=== PATIENT | female | born 1975 | race Caucasian/White ===

== ENCOUNTER 2017-06-27 05:10 | Emergency (ER) | payer OTHER ==
[~2017-06-27] VITALS: Ht 167.6 cm; Wt 190.5 kg
[~2017-06-27 05:10] MED LIST: AMBIEN CR12.5 M1 PO; AUGMENTIN 875-1 EACH PO; BACLOFEN10 M1 PO; DOXEPIN HCL10 MG PO; TRAMADOL HCL50 M1 PO
[2017-06-27 05:42] VITALS: BP 162/94
--- NOTE | 2017-06-27 05:50 | ED INFLUENZA/URI COMPLAINT ---
History of Present Illness General Chief Complaint: Upper Respiratory Sx/Fever Stated Complaint: PER PT " BAD COUGH,SAHU,BODY ACHES" Source: patient, old records Exam Limitations: no limitations Vital Signs & Intake/Output Vital Signs & Intake/Output Vital Signs Date Time Temp Pulse Resp B/P B/P Pulse O2 O2 Flow FiO2 Mean Ox Delivery Rate 06/27 0613 Room Air 06/27 0542 98.8 88 22 162/94 97 Room Air Room Air Allergies Coded Allergies: gabapentin (Severe, ANAPHYLAXIS 03/01/17) Reconcile Medications Amoxicillin/Potassium Clav (Augmentin 875-125 Tablet) 875 MG-125 MG TABLET 1 TAB PO BID colitis Baclofen 10 MG TABLET 1 TAB PO TID MUSCLE SPASMS Doxepin HCl 10 MG CAPSULE 1 CAP PO QHS PRN insomnia Tramadol HCl 50 MG TABLET 1-2 TAB PO Q6P PRN PAIN Zolpidem Tartrate (Ambien Cr) 12.5 MG TAB.MPHASE 1 TAB PO QHS PRN insomnia Triage Note: 41YO FEMALE TO TRIAGE W/CO RUNNY NOSE 2 D AGO, THEN COUGH, SORE THROAT AND SINUS PAIN BEGAN YESTERDAY Triage Nurses Notes Reviewed? yes : No Patient currently breastfeeds: No HPI: Patient presents the emergency department with a 4 day history of sinus congestion, runny nose, postnasal drip and a productive cough. Positive chills but no fevers. Positive sinus pressure that is worse when she leans forward. There is no radiation of the pressure. At its worst the pressure as a 5 out of 10. Patient states that she feels a little bit short of breath from the coughing. Patient denies any chest pain or chest tightness. There is no headache or blurry vision. Patient is also having a sore throat for the past 2 days. The sore throat was worse when she coughs. There is no radiation. No difficulty swallowing. Patient states that she had similar symptoms approximately a month and half ago. At that time she went to walk [place] and was put on Augmentin as well as a Z-Bruce as well as Tessalon Perles. Patient states that she had adverse reaction to the antibiotics but that her symptoms eventually went away. Past History Travel History Traveled to [place] past 21 day No Medical History Any Pertinent Medical History? 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 No Review of Systems Review of Systems Constitutional: Reports: no symptoms. EENTM: Reports: see HPI, nasal congestion, throat pain. Respiratory: Reports: see HPI, cough. Cardiovascular: Reports: no symptoms. GI: Reports: no symptoms. Genitourinary: Reports: no symptoms. Musculoskeletal: Reports: no symptoms. Skin: Reports: no symptoms. Neurological/Psychological: Reports: no symptoms. Hematologic/Endocrine: Reports: no symptoms. Immunologic/Allergic: Reports: no symptoms. All Other Systems: Reviewed and Negative Physical Exam Physical Exam General Appearance: well developed/nourished, alert, awake Head: atraumatic, normal appearance Eyes: Bilateral: PERRL, EOMI. Ears, Nose, Throat: Tympanic normal, pharynx normal, nasal congestion, nasal drainage Neck: normal inspection, supple, full range of motion Respiratory: normal breath sounds, chest non-tender, no respiratory distress, lungs clear Cardiovascular: regular rate/rhythm, normal peripheral pulses Gastrointestinal: normal bowel sounds, soft Back: normal inspection, normal range of motion Extremities: normal inspection, normal capillary refill, normal range of motion, no edema Neurologic/Psych: no motor/sensory deficits, awake, alert, oriented x 3, normal mood/affect Skin: intact, normal color, warm/dry Core Measures Sepsis Present: No Sepsis Focused Exam Completed? No Progress Differential Diagnosis: influenza, sinusitis Plan of Care: Orders Procedure Date/time Status RAPID VIRAL INFLUENZA A 06/27 546 Complete Microbiology 06/27 544 NASOPHARYN: Influenza Virus A & B Rapid Smear - COMP Initial ED EKG: none Departure Departure Disposition: HOME OR SELF CARE Condition: Stable Clinical Impression Primary Impression: Sinusitis Referrals: Boby Woods MD (PCP/Family) Additional Instructions: DRINK PELNTY OF FLUIDS TAKE ANTIBIOTICS PRESCRIBED RETURN IF SYMPTOMS WORSEN OR FOR ANY CONCERNS Departure Forms: Customer Survey General Discharge Information Prescriptions: Current Visit Scripts Levofloxacin (Levaquin) 1 TAB PO DAILY #10 TAB Mometasone Furoate (Nasonex) 2 SPRAY NASB DAILY #1 INHAL Benzonatate (Tessalon Perle) 1 CAP PO TID #30 CAP
[2017-06-27] MEDS ORDERED: LEVAQUIN500 M1 PO (06:15)
[2017-06-27] MEDS ORDERED: NASONEX17 GM NASB (06:15)
[2017-06-27] MEDS ORDERED: TESSALON PERLE100 M1 PO (06:15)
== END 2017-06-27 06:25 ==
LOC: ERH 05:10
DX: J32.9 Chronic sinusitis, unspecified (principal)
CPT/HCPCS: 87804; 87804-59

== ENCOUNTER 2017-07-09 20:35 | Emergency (ER) | payer OTHER ==
[~2017-07-09 20:35] MED LIST changes: +LEVAQUIN500 M1 PO; +NASONEX17 GM NASB; +TESSALON PERLE100 M1 PO
--- NOTE | 2017-07-09 23:28 | ED GENERAL ADULT ---
History of Present Illness General Chief Complaint: General Adult Stated Complaint: PANIC ATTACK,RASH ON LOWER BACK Source: patient Exam Limitations: no limitations Vital Signs & Intake/Output Vital Signs & Intake/Output Vital Signs Date Time Temp Pulse Resp B/P B/P Pulse O2 O2 Flow FiO2 Mean Ox Delivery Rate 07/09 2154 97.8 96 20 138/88 95 Room Air Allergies Coded Allergies: gabapentin (Severe, ANAPHYLAXIS 03/01/17) Reconcile Medications Amoxicillin/Potassium Clav (Augmentin 875-125 Tablet) 875 MG-125 MG TABLET 1 TAB PO BID colitis Baclofen 10 MG TABLET 1 TAB PO TID MUSCLE SPASMS Benzonatate (Tessalon Perle) 100 MG CAPSULE 1 CAP PO TID COUGH Doxepin HCl 10 MG CAPSULE 1 CAP PO QHS PRN insomnia Levofloxacin (Levaquin) 500 MG TABLET 1 TAB PO DAILY SINUSITIS LORazepam (Ativan) 1 MG TAB 1 TAB PO BID PRN anxiety Mometasone Furoate (Nasonex) 50 MCG SPRAY.PUMP 2 SPRAY NASB DAILY SINUS CONGESTION Mupirocin Calcium (Bactroban) 2 % CREAM..G. 1 JUAN R TOP TID rash apply to affected area(s) Tramadol HCl 50 MG TABLET 1-2 TAB PO Q6P PRN PAIN Zolpidem Tartrate (Ambien Cr) 12.5 MG TAB.MPHASE 1 TAB PO QHS PRN insomnia Triage Note: PT TO ED C/O PANIC ATTACK ALL DAY AND ALSO C/O RASH TO BACK. HAS FELT TIGHT AND ITCHY FOR A COUPLE OF WEEKS "I CAN'T SEE IT SO I DON'T KNOW REALLY WHAT IS GOING ON BACK THERE. IT'S A TIGHT PULLING FEELING WHEN I BEND OVER" Triage Nurses Notes Reviewed? yes Onset: Gradual Duration: day(s): (1) Timing: recent history Injury Environment: home Severity: moderate Severity Numbers: 7 No Modifying Factors: none : No Patient currently breastfeeds: No HPI: Patient is a 48-year-old female with history of anxiety presenting to the emergency department complaining of panic attack. Symptoms have been getting worse all day. She reports that she ran out of her medication to help with her panic attacks. Denies any fevers chills nausea vomiting. Patient does report that when she gets her panic attack she gets palpitations and shortness of breath which she has had throughout the day. Reports patient have improved since arrival. Looking for refill of her anxiety medication. Patient also reports that she noticed a rash on her back several days and has been scratching at it. Unable to see it and no one at home to help her evaluate it. (Smitha Berman) Past History Travel History Traveled to [place] past 21 day No Medical History Any Pertinent Medical History? 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 No (Smitha Berman) Review of Systems Review of Systems Constitutional: Reports: no symptoms. Comments Review of systems: See HPI, All other systems negative. Constitutional, no chills fever or weight loss HEENT: No visual changes no sore throat no congestion Cardiovascular: No chest pain ,palpitation , orthopnea or ankle swelling Skin, no jaundice no rashes Respiratory: No cough sputum or hemoptysis GI: No nausea no vomiting : No dysuria No hematuria Muscle skeletal: no back pain, no neck pain, Neurologic: No numbness no confusion Psych: pos stress and anxiety Heme/endocrine: No bruising no bleeding no polyuria or polydipsia Immunology: No splenectomy or history of AIDS (Smitha Berman) Physical Exam Physical Exam General Appearance: well developed/nourished, no apparent distress, alert, awake , anxious, obese Comments: Well-developed well-nourished person in no acute distress HEENT: Normal EENT exam, extraocular motion intact, no nystagmus. Pupils equally round and reactive to light and accommodation. Nose is atraumatic. External auditory canal and Tympanic membranes clear. Pharynx normal. No swelling or edema. Neck: Normal inspection Back: Nontender Cardiovascular: Regular rate and rhythms no murmurs rubs or gallops, normal JVP Respiratory: Chest nontender. No respiratory distress.breath sounds clear to auscultation bilaterally Extremity: No edema, no calf tenderness to palpation, normal and equal pulses. Neuro: Alert oriented x3, motor sensory normal, cranial nerves II through XII grossly intact. Skin: Slightly erythematous flat rash approximately 6 cm in size over the mid back. Excoriations present in the area. Psych: Appears anxious, tearful at times, memory and judgment is normal. Core Measures ACS in differential dx? No CVA/TIA Diagnosis: No Sepsis Present: No Sepsis Focused Exam Completed? No (Smitha Berman) Progress Differential Diagnoses I considered the following diagnoses in my evaluation of the patient: Generalizing anxiety disorder, panic disorder, nonspecific rash, contact dermatitis irritant dermatitis Plan of Care: Patient given limited prescription for Ativan. Also given topical Bactroban for rash on the back. It appears to be irritation. Advised to follow-up with her primary care physician in the next days for recheck. Initial ED EKG: none (Smitha Berman) Departure Departure Time of Disposition: 2353 Disposition: HOME OR SELF CARE Condition: Stable Clinical Impression Primary Impression: Panic attack Secondary Impressions: Rash Referrals: Boby Woods MD (PCP/Family) Additional Instructions: Follow-up with your primary care physician the next 1-2 days return for worsening symptoms or concerns. Take Ativan as prescribed up with anxiety. Use topical Bactroban to help with rash. He can use [id number] Benadryl to help with itchiness. Departure Forms: Customer Survey General Discharge Information Prescriptions: Current Visit Scripts LORazepam (Ativan) 1 TAB PO BID PRN anxiety #10 TAB Mupirocin Calcium (Bactroban) 1 JUAN R TOP TID #30 GM apply to affected area(s) (Smitha Berman) PA/RESIDENT PHYSICIAN IN RADIOLOGY Co-Sign Statement Statement: ED Attending supervision documentation- [] I saw and evaluated the patient. I have also reviewed all the pertinent lab results and diagnostic results. I agree with the findings and the plan of care as documented in the PA's/RESIDENT PHYSICIAN IN RADIOLOGY's documentation. [x] I have reviewed the ED Record and agree with the PA's/RESIDENT PHYSICIAN IN RADIOLOGY's documentation. [] Additions or exceptions (if any) to the PAs/RESIDENT PHYSICIAN IN RADIOLOGY's note and plan are summarized below: [] (Beatriz MARIE,Juan Diego Molina) Critical Care Note Critical Care Note Critical Care Time: non-applicable (Smitha Berman)
[2017-07-09] MEDS ORDERED: BACTROBAN15 GM TOP (23:55)
[2017-07-09] MEDS ORDERED: ATIVAN1 M1 PO (23:55)
[2017-07-10 00:02] VITALS: BP 134/75
== END 2017-07-10 00:02 ==
LOC: ERH 20:35
DX: F41.0 Panic disorder [episodic paroxysmal anxiety] (principal); R21 Rash and other nonspecific skin eruption

== ENCOUNTER 2018-02-28 19:35 | Emergency (ER) | payer SELFPAY ==
[~2018-02-28] VITALS: Ht 167.6 cm; Wt 207.3 kg
[~2018-02-28 19:35] MED LIST changes: +ATIVAN0.5 M1 PO; +ATIVAN1 M1 PO; +BACTROBAN15 GM TOP; +BUPROPION XL300 M1 PO; +CLONAZEPAM0.5 M2 PO; +DICLOFENAC SODI50 M3 PO; +DULOXETINE HCL20 MG PO; +LEVOTHYROXINE175 MCG PO; +LORAZEPAM1 M1 PO; +QUETIAPINE FUMA25 M1 PO; +SILENOR6 M1 PO; +SIMVASTATIN20 M2 PO; +SPIRONOLACTONE25 M1 PO; +TOPAMAX50 M1 PO; +TOPIRAMATE25 M2 PO; +VICTOZA 2-0.6 MG/0.1 SC; +VITAMIN D250000 UNIT PO; +WELLBUTRIN XL300 M2 PO
--- NOTE | 2018-02-28 19:55 | ED GI/GU/ABDOMINAL COMPLAINT ---
History of Present Illness General Chief Complaint: General Adult Stated Complaint: "I HAVE SEVERE NAUSEA AND SEVERE ADEMA IN MY LEGS" Source: patient Exam Limitations: no limitations Vital Signs & Intake/Output Vital Signs & Intake/Output Vital Signs Date Time Temp Pulse Resp B/P B/P Pulse O2 O2 Flow FiO2 Mean Ox Delivery Rate 02/28 2153 96 Room Air 02/29 1940 98.5 99 20 103/69 99 Room Air Allergies Coded Allergies: gabapentin (Severe, ANAPHYLAXIS 03/01/17) Reconcile Medications Bupropion HCl (Bupropion XL) 300 MG TAB.ER.24H 1 TAB PO QAM MENTAL HEALTH ( Reported) Bupropion HCl (Wellbutrin XL) 300 MG TAB.ER.24H 1 TAB PO QAM ANXIETY/ DEPRESSION Clonazepam 0.5 MG TABLET 1 TAB PO QPM SLEEP (Reported) Diclofenac Sodium 50 MG TABLET.DR 1 TAB PO BID PAIN (Reported) Doxepin HCl (Silenor) 6 MG TABLET 1 TAB PO QPM SLEEP (Reported) Doxepin HCl 10 MG CAPSULE 1 CAP PO QHS PRN insomnia Duloxetine HCl 20 MG CAPSULE.DR 2 CAP PO DAILY MENTAL HEALTH (Reported) Ergocalciferol (Vitamin D2) (Vitamin D2) 50,000 UNIT CAPSULE 1 CAP PO TuTh VITAMIN SUPPORT (Reported) Furosemide (Lasix) 40 MG TABLET 1 TAB PO BID PRN edema Ibuprofen 800 MG TABLET 1 TAB PO TID PRN pain Levothyroxine Sodium 175 MCG TABLET 1 TAB PO DAILY AC THYROID (Reported) Liraglutide (Victoza 2-Bruce) 0.6 MG/0.1 ML (18 MG/3 ML) PEN.INJCTR 0.3 MG SC BID DIABETES (Reported) Lorazepam 1 MG TABLET 1 TAB PO BID PRN ANXIETY (Reported) Lorazepam (Ativan) 0.5 MG TABLET 1 TAB PO BIDP PRN ANXIETY Mupirocin Calcium (Bactroban) 2 % CREAM..G. 1 JUAN R TOP TID rash apply to affected area(s) Ondansetron (Zofran Odt) 4 MG TAB.RAPDIS 1 TAB SL TID PRN nausea Oxycodone HCl/Acetaminophen (Percocet 5-325 MG Tablet) 5 MG-325 MG TABLET 1 TAB PO 4XDP PRN PAIN TEN...[id number] Promethazine HCl 25 MG TABLET 1 TAB PO Q6P PRN nausea Quetiapine Fumarate 25 MG TABLET 4 TAB PO QPM SLEEP (Reported) Simvastatin (Simvastatin*) 20 MG TABLET 1 TAB PO QPM CHOLESTEROL (Reported) Spironolactone 25 MG TABLET 1 TAB PO BID UNKNOWM (Reported) Topiramate 25 MG TABLET 1 TAB PO DAILY MENTAL HEALTH (Reported) Topiramate (Topamax) 50 MG TABLET 1 TAB PO QPM MENTAL HEALTH (Reported) Triage Note: PT HERE WITH C/O NAUSEA SINCE LAST NIGHT AFTER DINNER. PT REPORTS SHES HASNT THROWN UP JUST FEELS NUASEA AND HAS LEFT ABD QUAD PAIN. PT DENIES ANYONE ELSE SICK AT HOME. PT ALSO REPORTS BILATERAL LOWER EXTREMITY EDEMA. Triage Nurses Notes Reviewed? yes ? n Is pt currently ? No Onset: Gradual Duration: day(s): Timing: recent history Quality/Severity: cramping Location: left lower quadrant Radiation: no radiation Activities at Onset: none Prior Abdominal Problems: "I have irritable bowel syndrome" Modifying Factors: Worsens With: palpation. Associated Symptoms: nausea/vomiting HPI: 42 yo woman h/o irritable bowel syndrome presents with 24 hours of nausea, without vomiting, diarrhea, dysuria, fever. She notes it began after dinner. She also notes diffuse lower extremity swelling, symmetric. "I used to take lasix every day but I ran out of insurance and now I don't have any of my pills. " She notes chronic right hip pain x many years, "I think I compensate and hold my body a certain way... likely maybe I pulled a muscle on my left." She is otherwise well. Past History Travel History Traveled to [place] past 21 day No Medical History Any Pertinent Medical History? 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 No Review of Systems Review of Systems Constitutional: Reports: no symptoms. EENTM: Reports: no symptoms. Respiratory: Reports: no symptoms. Cardiovascular: Reports: no symptoms. GI: Reports: no symptoms. Genitourinary: Reports: no symptoms. Musculoskeletal: Reports: no symptoms. Skin: Reports: no symptoms. Neurological/Psychological: Reports: no symptoms. Hematologic/Endocrine: Reports: no symptoms. Immunologic/Allergic: Reports: no symptoms. All Other Systems: Reviewed and Negative Physical Exam Physical Exam General Appearance: well developed/nourished, mild distress Head: atraumatic, normal appearance Eyes: Bilateral: normal appearance. Ears, Nose, Throat, Mouth: hearing grossly normal, moist mucous membrane Neck: normal inspection, supple, full range of motion, normal alignment Respiratory: normal breath sounds, chest non-tender, no respiratory distress, quiet respiration, lungs clear Cardiovascular: regular rate/rhythm Gastrointestinal: obese with large pannus, left sided abdominal wall tenderness, mostly in pannus. Back: normal inspection, normal range of motion Extremities: mild right hip girdle diffuse tenderness to palpation Neurologic/Psych: no motor/sensory deficits, awake, alert, oriented x 3 Skin: intact, normal color, warm/dry Core Measures ACS in differential dx? No Sepsis Present: No Sepsis Focused Exam Completed? No Progress Differential Diagnosis: diverticulitis vs constipation vs IBS vs other. Plan of Care: Orders Procedure Date/time Status TROPONIN LEVEL 02/28 1941 Complete HUMAN BETA HCG SCREEN 02/28 1941 Complete COMPREHENSIVE METABOLIC PANEL 02/28 1941 Complete CBC WITHOUT DIFFERENTIAL 02/28 1941 Complete EKG 02/28 1941 Active Current Medications Sig/Justyn Start time Last Medication Dose Stop Time Status Admin Ketorolac 60 MG ONCE ONE 02/28 2230 UNVr Tromethamine 02/28 2231 (Toradol) Laboratory Tests 02/28/181954: Anion Gap 7, Estimated GFR > 60, BUN/Creatinine Ratio 18.6, Glucose 149 H, Calcium 8.9, Total Bilirubin 0.3, AST 25, ALT 39, Alkaline Phosphatase 94, Troponin I < 0.01, Total Protein 6.5, Albumin 3.9, Globulin 2.6, Albumin/ Globulin Ratio 1.5, Total Beta HCG NEGATIVE, CBC w Diff NO MAN DIFF REQ, RBC 4.22, MCV 94.4, MCH 30.8, MCHC 32.7 L, RDW 14.4, MPV 8.1, Gran % 75.3 H, Lymphocytes % 16.2 L, Monocytes % 5.3, Eosinophils % 2.9, Basophils % 0.3, Absolute Granulocytes 7.3 H, Absolute Lymphocytes 1.6, Absolute Monocytes 0.5, Absolute Eosinophils 0.3, Absolute Basophils 0 02/28/181940: Urine Color Cancelled, Urine Clarity Cancelled, Urine pH Cancelled, Ur Specific [place] Cancelled, Urine Protein Cancelled, Urine Ketones Cancelled, Urine Nitrite Cancelled, Urine Bilirubin Cancelled, Urine Urobilinogen Cancelled, Ur Leukocyte Esterase Cancelled, Ur Microscopic Cancelled, Urine Hemoglobin Cancelled, Urine Glucose Cancelled Diagnostic Imaging: Viewed by Me: CT Scan. Discussed w/RAD: CT Scan. Radiology Impression: PATIENT: OMAR ÁSNCHEZ PRESENT AGE: 42 PATIENT ACCOUNT NO: [id number] : 75 LOCATION: [facility] ORDERING PHYSICIAN: Juan Diego Henderson MD SERVICE DATE: 02/28/18-1954 EXAM TYPE: CAT - CT ABD & PELVIS W/O IV CONTRAS EXAMINATION: CT ABDOMEN AND PELVIS WITHOUT CONTRAST CLINICAL INFORMATION: Left-sided abdominal pain. COMPARISON: None TECHNIQUE: Multidetector volumetric imaging was performed from the superior aspect of the liver through the pubic symphysis. Sagittal and coronal reformatted images were obtained on the technologist's workstation. DLP: 1609 mGy-cm FINDINGS: The exam is limited secondary to patient body habitus. LUNG BASES: The visualized lung bases are unremarkable. LIVER, GALLBLADDER, AND BILIARY TREE: The liver is normal in size, shape, and attenuation. No focal hepatic lesion or biliary ductal dilatation is present. There is a nonspecific hypodensity along the inferior edge of right hepatic lobe The gallbladder is unremarkable with no evidence of radiopaque gallstones, gallbladder wall thickening, or obvious pericholecystic inflammatory changes. PANCREAS: Unremarkable. SPLEEN: Unremarkable. ADRENAL GLANDS: Unremarkable. KIDNEYS AND URETERS: The kidneys are normal in size, shape, and attenuation. No hydronephrosis, hydroureter, or calculi seen. No perinephric stranding. BLADDER: Unremarkable. GASTROINTESTINAL TRACT: Few scattered diverticuli seen in the sigmoid colon without any diverticulitis or pericolic fat haziness. Rest the colon and small bowel loops unremarkable. ABDOMINAL WALL: Then turned anterior abdominal wall is not included in the gantry while scanning. There are no visible hernia seen. LYMPH NODES: Normal. VASCULAR: Unremarkable. PELVIC VISCERA : The uterus is anteverted with an IUD well located within endometrial canal OSSEOUS STRUCTURES: Unremarkable. IMPRESSION: No acute intra-abdominal process seen. There is scattered sigmoid diverticulosis without diverticulitis. There is a well located IUD in the endometrial canal and an anteverted uterus. DICTATED BY: Migue Roa MD DATE/TIME DICTATED:02/28/182104 BROADCAST CHIEF ENGINEER:BRITTNI DATE/TIME TRANSCRIBED:02/28/182104 CONFIDENTIAL, DO NOT COPY WITHOUT APPROPRIATE AUTHORIZATION. <Electronically signed in Other Vendor System> SIGNED BY: Janina MARIE,Migue 02/28/182116 Initial ED EKG: normal axis, normal intervals, normal p-waves, normal QRS complex, normal sinus rhythm Departure Departure Disposition: HOME OR SELF CARE Condition: Stable Clinical Impression Primary Impression: Abdominal pain Secondary Impressions: Edema, Nausea, Right hip pain Referrals: Boby Woods MD (PCP/Family) Departure Forms: Customer Survey General Discharge Information Prescriptions: Current Visit Scripts Ondansetron (Zofran Odt) 1 TAB SL TID PRN nausea #10 TAB Promethazine HCl 1 TAB PO Q6P PRN nausea #30 TAB Furosemide (Lasix) 1 TAB PO BID PRN edema #8 TAB Ibuprofen 1 TAB PO TID PRN pain #30 TAB Oxycodone HCl/Acetaminophen (Percocet 5-325 MG Tablet) 1 TAB PO 4XDP PRN PAIN #10 TAB TEN...[id number] Comments 02/28/18, 22:32... pt feeling well in ED... labs/ct scan benign... discussed at length... pt safe for discharge with supportive medications... close follow up advised.
[2018-02-28 20:07] LABS: ABSOLUTE BASOPHIL COUNT 0 /CUMM (0.0-0.2); ABSOLUTE EOSINOPHIL COUNT 0.3 /CUMM (0.0-0.7); ABSOLUTE GRANULOCYTE CT 7.3 /CUMM (1.4-6.5); ABSOLUTE LYMPH COUNT 1.6 /CUMM (1.2-3.4); ABSOLUTE MONOCYTE COUNT 0.5 /CUMM (0.10-0.60); BASOPHIL % 0.3 % (0.0-2.0); EOSINOPHIL % 2.9 % (0-5); GRANULOCYTE % 75.3 % (42.2-75.2); HEMATOCRIT 39.9 % (37-47); MEAN CORPUSCULAR HGB 30.8 PG (27.0-31.0); MEAN CORPUSCULAR HGB CONC 32.7 G/DL (33.0-37.0); MEAN CORPUSCULAR VOLUME 94.4 FL (81.0-99.0); MEAN PLATELET VOLUME 8.1 FL (7.4-10.4); PLATELET COUNT 328 /CUMM (130-400); RBC DISTRIBUTION WIDTH 14.4 % (11.5-14.5); RED BLOOD CELL CT 4.22 /CUMM (4.20-5.40); WHITE BLOOD CELL COUNT 9.7 /CUMM (4.8-10.8)
--- NOTE | 2018-02-28 21:17 | CT SCAN REPORT ---
EXAMINATION: CT ABDOMEN AND PELVIS WITHOUT CONTRAST CLINICAL INFORMATION: Left-sided abdominal pain. COMPARISON: None TECHNIQUE: Multidetector volumetric imaging was performed from the superior aspect of the liver through the pubic symphysis. Sagittal and coronal reformatted images were obtained on the technologist's workstation. DLP: 1609 mGy-cm FINDINGS: The exam is limited secondary to patient body habitus. LUNG BASES: The visualized lung bases are unremarkable. LIVER, GALLBLADDER, AND BILIARY TREE: The liver is normal in size, shape, and attenuation. No focal hepatic lesion or biliary ductal dilatation is present. There is a nonspecific hypodensity along the inferior edge of right hepatic lobe The gallbladder is unremarkable with no evidence of radiopaque gallstones, gallbladder wall thickening, or obvious pericholecystic inflammatory changes. PANCREAS: Unremarkable. SPLEEN: Unremarkable. ADRENAL GLANDS: Unremarkable. KIDNEYS AND URETERS: The kidneys are normal in size, shape, and attenuation. No hydronephrosis, hydroureter, or calculi seen. No perinephric stranding. BLADDER: Unremarkable. GASTROINTESTINAL TRACT: Few scattered diverticuli seen in the sigmoid colon without any diverticulitis or pericolic fat haziness. Rest the colon and small bowel loops unremarkable. ABDOMINAL WALL: Then turned anterior abdominal wall is not included in the gantry while scanning. There are no visible hernia seen. LYMPH NODES: Normal. VASCULAR: Unremarkable. PELVIC VISCERA: The uterus is anteverted with an IUD well located within endometrial canal OSSEOUS STRUCTURES: Unremarkable. IMPRESSION: No acute intra-abdominal process seen. There is scattered sigmoid diverticulosis without diverticulitis. There is a well located IUD in the endometrial canal and an anteverted uterus.
[2018-02-28] MEDS ORDERED: LASIX40 M1 PO (22:30)
[2018-02-28] MEDS ORDERED: PROMETHAZINE HC25 M3 PO (22:30)
[2018-02-28] MEDS ORDERED: IBUPROFEN800 M1 PO (22:30)
[2018-02-28] MEDS ORDERED: PERCOCET 5-3251 EACH PO (22:30)
[2018-02-28] MEDS ORDERED: ZOFRAN ODT4 M1 SL (22:30)
[2018-02-28 22:35] VITALS: BP 114/67
== END 2018-02-28 22:39 ==
LOC: ERH 19:35
PROVIDERS: Pediatrics
DX: R10.32 Left lower quadrant pain (principal); M25.551 Pain in right hip; R60.9 Edema, unspecified; R11.0 Nausea; G43.909 Migraine, unspecified, not intractable, without status migrainosus; E78.00 Pure hypercholesterolemia, unspecified; K58.9 Irritable bowel syndrome, unspecified
CPT/HCPCS: 74176; 93005; 93010; 96372; J1885